=== PATIENT | female | born 1945 | race African-American/Black ===

== ENCOUNTER → 2020-09-19 | Outpatient (CLI) | payer MEDICARE ==
--- NOTE | 2020-09-19 10:26 | RAD ---
ADDENDUM #1 Addendum: Addendum is being made to include another finding within impression. There is a 1.4 cm subtle hypodensities nonsuppression process of pancreas. This could reflect intersp ersed fat versus a cystic lesion of the pancreas. Further catheterization with MRCP could be of benef it. End of addendum: Electronically signed by: Aimee Sotelo MD (09/19/2020 10:44 AM) [id number] ORIGINAL REPORT PQRS Compliance Statement: One or more of the following individualized dose reduction techniques were utilized for this examinat ion: 1. Automated exposure control 2. Adjustment of the mA and/or kV according to patient size 3. Use of iterative reconstruction technique CT abdomen/pelvis without contrast 09/19/2020 7:45 AM INDICATION: Abdominal cramping, bloating and gas for one week. History of gastric ulcer. COMPARISON: None available TECHNIQUE: Multiple axial CT images of the abdomen and pelvis were obtained without intravenous contr ast. Coronal and sagittal reformats are provided. FINDINGS: Lung bases are clear. Heart size within normal limits. Evaluation of solid abdominal viscera is limit ed by lack of intravenous contrast. Liver, spleen and adrenal glands are normal in appearance. Gallbl adder surgically absent. Subtle hypodensity is identified within the uncinate process of the pancreas measuring 1.4 cm. This could represent a cystic lesion. Abdominal aorta is normal in caliber with mo derate calcified atheromatous plaque. No pathologically enlarged lymph nodes are identified abdomen a nd pelvis. There is no free fluid or free intraperitoneal air. There is mild to moderate diverticulos is. Minimal inflammation is identified adjacent to the mid descending colon in an area of circumferen tial wall thickening suspicious for diverticulitis. No bowel perforation or abscess is identified. Ap pendix is normal in appearance. The kidneys are relatively symmetric in appearance. There is no suspi cious renal mass within the limitations of a noncontrast examination. There is no hydronephrosis. The re are no calculi within the kidneys, ureters or urinary bladder. Urinary bladder is within normal li mits given degree of distention. No suspicious pelvic mass. No suspicious osseous abnormality is iden tified. IMPRESSION: Findings are compatible with diverticulitis involving a short segment of the descending colon without bowel perforation or peridiverticular abscess. FOR INTERNAL CODING PURPOSES Critical result: Findings discussed with Rocio at the office of Rena MONTES at 09/19/2020 10:23 AM. RESULT CODE: (C) Electronically signed by: Aimee Sotelo MD (09/19/2020 10:24 AM) [id number]
== END ==
LOC: CT 07:33
PROVIDERS: ATTEND Nurse Practitioner Adult Health
DX: K57.90 Diverticulosis of intestine, part unspecified, without perforation or abscess without bleeding (principal); I70.0 Atherosclerosis of aorta; Z90.49 Acquired absence of other specified parts of digestive tract
CPT/HCPCS: 74176